=== PATIENT | female | born 1995 | race African-American/Black ===

== ENCOUNTER 2022-05-13 18:15 | Inpatient (IN) | payer OTHER ==
[2022-05-13] MEDS ORDERED: PROMETHAZINE HCL 25 MG/1 ML VIAL IVPUSH PRN (19:49)
[2022-05-13] MEDS ORDERED: BUTORPHANOL TARTRATE 1 MG/ML VIAL IVPB ONE (19:49)
[2022-05-13] MEDS ORDERED: DINOPROSTONE 10 MG VAGINAL SUPPOSITORY VG ONE (19:53)
[2022-05-13] MEDS ORDERED: LABETALOL HCL 200 MG TABLET (FP) PO STA (19:57)
[2022-05-13] MEDS ORDERED: LABETALOL HCL 200 MG TABLET (FP) ONE (20:31)
[2022-05-13] MEDS: LACTATED RINGERS SOLUTION 1,000 ML/1,000 ML INFUS.BAG IV SCH (22:15)
[2022-05-13 22:33] VITALS: BMI 41.1
[2022-05-14] MEDS: OXYTOCIN 30 UNITS in 0.9% NS 30 UNIT/500 ML INFUS.BAG IVPB SCH (06:00)
[2022-05-14] MEDS ORDERED: OXYTOCIN 30 UNITS in 0.9% NS 30 UNIT/500 ML INFUS.BAG IVPB ONE (06:02)
[2022-05-14] MEDS: LACTATED RINGERS SOLUTION 1,000 ML/1,000 ML INFUS.BAG IV SCH ×2 (09:00→17:00)
[2022-05-14] MEDS ORDERED: CITRIC ACID/SODIUM CITRATE 30 ML UNIT-DOSE CUP PO ONE (19:34)
[2022-05-14] MEDS ORDERED: ELECTROLYTE-148 SOLN 500 ML IV ONE (19:34)
[2022-05-15] MEDS ORDERED: IBUPROFEN 600 MG TABLET (FP) PO PRN ×2 (00:02→00:44)
[2022-05-15] MEDS ORDERED: ONDANSETRON 4 MG/2 ML VIAL IVPB PRN (00:02)
[2022-05-15] MEDS ORDERED: IBUPROFEN 800 MG/8 ML IJ IVPB PRN (00:02)
[2022-05-15] MEDS ORDERED: ACETAMINOPHEN 1000 MG/100 ML BAG IVPB PRN (00:02)
[2022-05-15] MEDS ORDERED: oxyCODONE HCL 5 MG TABLET PO PRN ×2 (00:02→11:55)
[2022-05-15] MEDS ORDERED: ACETAMINOPHEN 325 MG TABLET (FP) PO PRN ×3 (00:02→20:00)
[2022-05-15] MEDS ORDERED: morphine SULFATE/PF 1 MG/2 ML (2cc Syringe - QUVA) EP ONE (00:44)
[2022-05-15] MEDS ORDERED: ONDANSETRON 4 MG/2 ML VIAL IVPUSH PRN (00:44)
[2022-05-15] MEDS: OXYTOCIN 20 UNITS in 0.9% NS 20 UNIT/1,000 ML INFUS.BAG IV SCH ×2 (01:00→13:29)
[2022-05-15] MEDS ORDERED: CEFAZOLIN 2 GM in DEXTROSE 5%-WATER - 50 ML IVPB SCH (02:00)
[2022-05-15] MEDS ORDERED: ceFAZolin SODIUM 1 GM VIAL ONE (02:46)
[2022-05-15] MEDS ORDERED: LABETALOL HCL 100 MG TABLET (FP) PO SCH (06:00)
[2022-05-15] MEDS: LACTATED RINGERS SOLUTION 1,000 ML/1,000 ML INFUS.BAG IV SCH (07:20)
[2022-05-15] MEDS: OXYTOCIN 30 UNITS in 0.9% NS 30 UNIT/500 ML INFUS.BAG IVPB SCH (07:21)
[2022-05-15] MEDS ORDERED: IBUPROFEN 800 MG/8 ML IJ IVPB ONE (08:52)
[2022-05-15] MEDS ORDERED: CEFAZOLIN SODIUM 2 GM VIAL ONE (09:39)
[2022-05-15] MEDS: LABETALOL HCL 100 MG TABLET (FP) PO PRN (10:00)
[2022-05-15] MEDS ORDERED: CEFAZOLIN SODIUM 2 GM in DEXTROSE 5%-WATER - 50 ML IVPB SCH (10:00)
[2022-05-15] MEDS ORDERED: OXYTOCIN 20 UNITS in 0.9% NS 20 UNIT/1,000 ML INFUS.BAG IV ONE (13:26)
[2022-05-15] MEDS ORDERED: ACETAMINOPHEN INJECTION 100 ML IVPB ONE (15:23)
[2022-05-15] MEDS: SIMETHICONE 80 MG TAB.CHEW (FP) PO PRN (20:20)
[2022-05-15] MEDS: SENNOSIDES/DOCUSATE COMBO (SENNA PLUS) TABLET (UD) PO PRN (20:20)
[2022-05-15] MEDS: IBUPROFEN 600 MG TABLET (FP) PO PRN (20:20)
[2022-05-15] MEDS ORDERED: ACETAMINOPHEN 500 MG TABLET (FP) PO PRN (23:00)
[2022-05-16] MEDS ORDERED: BISACODYL 10 MG SUPP.RECT RC PRN (00:03)
[2022-05-16] MEDS: IBUPROFEN 600 MG TABLET (FP) PO PRN ×2 (02:27→15:55)
[2022-05-16] MEDS: SIMETHICONE 80 MG TAB.CHEW (FP) PO PRN ×2 (02:28→06:23)
[2022-05-16 09:14] LABS: BASO % 0.2 % (0-2.0); EOS % 0.6 % (0-4.5); HEMATOCRIT 35.6 % (32.4-45.2); HEMOGLOBIN 11.8 GM/dL (10.7-15.3); MCH 27.2 pg (25.7-33.7); MEAN CELL VOLUME 82.2 fl (80-96); MEAN PLT VOLUME 7.8 fl (7.5-11.1); MONO % 7.8 % (3.8-10.2); NEUT % 68.4 % (42.8-82.8); PLATELET COUNT 342 10^3/uL (134-434); RBC 4.33 M/mm3 (3.60-5.2); RDW 15.2 % (11.6-15.6)
[2022-05-17] MEDS: SIMETHICONE 80 MG TAB.CHEW (FP) PO PRN ×3 (06:43→20:39)
[2022-05-17] MEDS: IBUPROFEN 600 MG TABLET (FP) PO PRN ×3 (06:44→22:30)
[2022-05-17] MEDS: OXYTOCIN 30 UNITS in 0.9% NS 30 UNIT/500 ML INFUS.BAG IVPB SCH (11:01)
[2022-05-17] MEDS: OXYTOCIN 20 UNITS in 0.9% NS 20 UNIT/1,000 ML INFUS.BAG IV SCH (11:01)
[2022-05-17] MEDS: SENNOSIDES/DOCUSATE COMBO (SENNA PLUS) TABLET (UD) PO PRN (20:39)
[2022-05-18] MEDS: SIMETHICONE 80 MG TAB.CHEW (FP) PO PRN (08:11)
[2022-05-18] MEDS: IBUPROFEN 600 MG TABLET (FP) PO PRN (08:11)
[2022-05-18] MEDS: LABETALOL HCL 100 MG TABLET (FP) PO PRN (08:11)
[2022-05-18 08:50] VITALS: RESP 18; TEMP 97.7
[2022-05-18 10:32] VITALS: BP 146/91; PULSE 75
== END 2022-05-18 11:45 | disposition home or self-care (01) | DRG 540 ==
LOC: JLDR 18:15 → J3W 05-15 16:00
PROVIDERS: ADMIT Specialist; ATTEND Specialist
PROC: 3E0P7VZ Introduction of Hormone into Female Reproductive, Via Natural or Artificial Opening (ICD-10-PCS; 2022-05-13)
PROC: 3E033VJ Introduction of Other Hormone into Peripheral Vein, Percutaneous Approach (ICD-10-PCS; 2022-05-13)
PROC: 10D00Z1 Extraction of Products of Conception, Low, Open Approach (ICD-10-PCS; principal; 2022-05-14)
DX: O62.0 Primary inadequate contractions (principal); O24.425 Gestational diabetes mellitus in childbirth, controlled by oral hypoglycemic drugs; O13.4 Gestational [pregnancy-induced] hypertension without significant proteinuria, complicating childbirth; Z3A.38 38 weeks gestation of pregnancy; Z37.0 Single live birth
CPT/HCPCS: 36415; 80053; 82570; 82962; 84156; 85025; 85027; 85610; 85730; 86780; 86850; 86900; 86901; 87389; 88307-TC; C9803-CS; U0003; U0005